=== PATIENT | female | born 1995 | race Caucasian/White ===

== ENCOUNTER → 2017-08-25 | Outpatient (CLI) | payer OTHER ==
--- NOTE | 2017-08-25 11:56 | US ---
EXAMINATION TYPE: US extremity nonvascular ltd LT DATE OF EXAM: 08/25/2017 COMPARISON: NONE CLINICAL HISTORY: Z97.[address] Abnormal physical exam after insertion procedure and offi ce today. Technique: Targeted ultrasound left upper extremity at area of insertion is noted. Findings: 6 images saved show fairly uniform echogenic structure with posterior shadowing in the subc utaneous tissue just below skin surface likely reflecting implanted subcutaneous control device . No worrisome fluid collection is seen on images saved. IMPRESSION: As above.
== END | disposition home or self-care (01) ==
LOC: RADUSWWP 11:15
PROVIDERS: ATTEND Obstetrics & Gynecology
DX: Z09 Encounter for follow-up examination after completed treatment for conditions other than malignant neoplasm (principal); Z97.5 Presence of (intrauterine) contraceptive device